=== PATIENT | female | born 1945 | race Caucasian/White ===

== ENCOUNTER → 2017-03-21 | Outpatient (CLI) | payer MEDICARE, OTHER ==
--- NOTE | 2017-03-21 11:39 | RADIOLOGY REPORT PS360 ---
US RUQ-(ABD LTD)1ORGAN/QUAD/FU HISTORY: RUQ PAIN ORDERING PHYSICIAN: Alexandra Granado APRN PATIENT AGE: 71 years COMPARISON: None FINDINGS: PANCREAS: Unremarkable. No obvious mass or abnormal fluid collection. No ductal dilatation LIVER: No focal liver lesions demonstrated. Homogeneous echogenicity. No intrahepatic biliary ductal dilatation evident RIGHT KIDNEY: Unremarkable. Normal size and echogenicity. No hydronephrosis GALLBLADDER: No gallstones, gallbladder wall thickening, pericholecystic fluid, or biliary dilatation. IMPRESSION: Negative gallbladder/right upper quadrant ultrasound
== END ==
LOC: RAD 07:41
DX: R10.11 Right upper quadrant pain (principal); R10.9 Unspecified abdominal pain

== ENCOUNTER → 2017-04-07 | Day surgery (SDC) | payer MEDICARE, OTHER ==
--- NOTE | 2017-04-07 11:05 | Operative Note ---
Upper GI Endoscopy Procedure date: 04/07/17 Date of : 41 Procedure:Upper GI Endoscopy Esophagogastroduodenoscopy with cold biopsies and TTS balloon dilation Indications: Mrs. Anton is a 71-year-old female who is here for diagnostic upper endoscopy. She does have epigastric abdominal pain radiating into the back. She has noted nausea, bloating, early satiety and some belching. She reports some heartburn and reflux but came off of Nexium. She does have some occasional dysphagia and hard swallowing. She reports constipation predominant IBS but some mixed with diarrhea. Her last colonoscopy was with the 13-14 years ago. Performing Provider: Lisbeth Edwards MD Referring Provider: Philly FINN Sedation: Fentanyl 100 mg IV/Versed 5 mg Procedure: Prior to the procedure, a history and physical exam was performed, and patients medications and allergies were reviewed. The risks and benefits of the procedure and the sedation options and risks were discussed with the patient. All questions were answered and informed consent was obtained. The patient was brought to the procedure room. Patient identification and proposed procedure were verified by the physician and the nurse. The patient was placed in a left lateral decubitus position and the scope was passed under direct vision. Throughout the procedure, the patient's blood pressure, pulse, and oxygen saturations were monitored continuously. The endoscope was introduced through the mouth, and advanced to the second part of duodenum. The upper GI endoscopy was accomplished without difficulty. The patient tolerated the procedure well. Findings: The scope was passed directly into the upper esophagus and advanced to the third portion of the duodenum. The post bulbar duodenum and duodenal bulb were normal with normal mucosa and conniventes. The scope was withdrawn through a normal duodenal bulb and pylorus into the stomach. There was bile reflux with linear erythema of the antrum and body of the stomach with evident linear reactive gastritis. The remainder of the antrum, body and fundus of the stomach were grossly normal. Upon retroflexion there was a 2-3 cm hiatal hernia. 2 biopsies were taken in the antrum and along the lesser curvature for histology and/or CLOtest. The scope was then withdrawn into the esophagus. There was no evidence of reflux esophagitis or Aguialr's. There were tertiary contractions and evidence of mild esophageal dysmotility. The entire esophagus was dilated to 60 Upper Sorbian/20 mm with a TTS hydrostatic balloon. There was some resistance at the cricopharyngeus. The remainder of the esophageal mucosa was normal. Immediate complications: None EBL (ml): 0 Impression: 1. 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 Bile reflux with linear reactive gastritis Recommendations: I do feel patient would benefit from dietary measures, fiber bowel regimen, promotility therapy and treatment for visceral sensitivity. I will follow-up the biopsies. The patient does have functional dyspepsia and functional gastroesophageal reflux disease. at 1109
[2017-04-07 13:30] VITALS: BP 122/63
== END ==
LOC: SDC 09:01
PROVIDERS: Internal Medicine Gastroenterology
PROC: 0D758ZZ Dilation of Esophagus, Via Natural or Artificial Opening Endoscopic (ICD-10-PCS; 2017-04-07)
PROC: 0DB78ZX Excision of Stomach, Pylorus, Via Natural or Artificial Opening Endoscopic, Diagnostic (ICD-10-PCS; principal; 2017-04-07 11:30)
DX: K21.9 Gastro-esophageal reflux disease without esophagitis (principal); K44.9 Diaphragmatic hernia without obstruction or gangrene
CPT/HCPCS: C1726

== ENCOUNTER 2017-05-19 11:26 | Day surgery (SDC) | payer MEDICARE, OTHER ==
--- NOTE | 2017-05-19 13:44 | Operative Note ---
Upper GI Endoscopy Procedure date: 05/19/17 Date of : 41 Procedure:Upper GI Endoscopy Esophagogastroduodenoscopy with TTS balloon dilation Indications: Mrs. Anton is a 72-year-old female who was having dyspepsia nausea and bloating. She also had dysphagia and globus sensation with a globus sensation has been persistent. She previously had some cricopharyngeal spasm and this was dilated to 20 mm. She is here for repeat dilation after her prior esophageal dilation on April 07, 2017. Performing Provider: Lisbeth Edwards MD Referring Provider: Philly FINN Sedation: Fentanyl 100 mg IV/Versed 4 mg IV Procedure: Prior to the procedure, a history and physical exam was performed, and patients medications and allergies were reviewed. The risks and benefits of the procedure and the sedation options and risks were discussed with the patient. All questions were answered and informed consent was obtained. The patient was brought to the procedure room. Patient identification and proposed procedure were verified by the physician and the nurse. The patient was placed in a left lateral decubitus position and the scope was passed under direct vision. Throughout the procedure, the patient's blood pressure, pulse, and oxygen saturations were monitored continuously. The endoscope was introduced through the mouth, and advanced to the second part of duodenum. The upper GI endoscopy was accomplished without difficulty. The patient tolerated the procedure well. Findings: The scope was passed directly into the upper esophagus and advanced to the third portion of the duodenum. The post bulbar duodenum and duodenal bulb were normal with normal mucosa and conniventes. The scope was withdrawn through a normal duodenal bulb and pylorus into the stomach. There was mild pylorospasm and mild linear reactive gastritis. The scope was then withdrawn into the esophagus. There was a small hiatal hernia. There was esophageal dysmotility with cricopharyngeal spasm. The cricopharyngeus was again dilated to 20 mm with a TTS hydrostatic balloon. Immediate complications: None EBL (ml): 0 Impression: 1. Cricopharyngeal spasm with nonerosive gastroesophageal reflux disease and small hiatal hernia status post dilation to 20 mm Recommendations: The patient does have globus sensation secondary to functional gastroesophageal reflux disease and cricopharyngeal spasm. We will discuss additional treatment options for her globus sensation. I will proceed with screening colonoscopy. at 1341
--- NOTE | 2017-05-19 14:02 | Operative Note ---
Colonoscopy ([facility]erry) Procedure date: 05/19/17 Date of : 41 Procedure:Colonoscopy Colonoscopy with cold biopsy Indications: Mrs. Anton is a 72-year-old female who is here for follow-up screening/ surveillance colonoscopy. Her last colonoscopy by me 12 or 13 years ago was normal. She has improved with bowel function since initiation of the fiber bowel regimen (MiraLAX plus Metamucil). She has had some ongoing globus sensation. She reports no abdominal pain, weight loss, change in her bowel habits or rectal bleeding. She reports no family history of colon cancer. Performing Provider: Lisbeth Edwards MD Referrring Provider: Philly FINN Sedation: Fentanyl 100 mg IV/Versed 7 mg IV Procedure: Prior to the procedure, a history and physical exam was performed, and patient medications and allergies were reviewed. The risks and benefits of the procedure and the sedation options and risks were discussed with the patient. All questions were answered and informed consent was obtained. Patient identification and proposed procedure were verified by the physician and the nurse. The patient was placed in a left lateral decubitus position. Throughout the procedure, the patient's blood pressure, pulse, and oxygen saturations were monitored continuously. Findings: On digital rectal examination there was normal rectal tone. There were no external hemorrhoids. The colonoscope was introduced through the anal canal to the rectum and advanced to the cecum. The ileocecal valve and appendiceal orifice were identified. The scope was advanced a short distance into the ileum which appeared grossly normal. The scope was then withdrawn into the colon. There was a single diminutive polyp in the ascending colon that was 3 mm and removed via cold biopsy. The remaining cecum, ascending and transverse colon and mucosa were grossly normal. There were very mildly shallow scattered diverticuli throughout the descending and sigmoid colon (LEFT colon). The rectum itself was normal. Upon retroflexion within the rectum there were grade 1 internal hemorrhoids. Impressions: 1. Diminutive ascending polyp 2. Very mild left-sided diverticulosis 3. Grade 1 internal hemorrhoids Recommendations: I am not convinced that she will require any further screening/surveillance colonoscopy. I will follow up the polyp histology. I would continue the fiber bowel regimen on a long-term daily maintenance basis. Complications: None EBL (ml): 0 at 1402
[2017-05-19 15:41] VITALS: BP 131/71
== END 2017-05-19 15:25 | disposition home or self-care (01) ==
LOC: SDC 11:26
PROVIDERS: Internal Medicine Gastroenterology
PROC: 0D758ZZ Dilation of Esophagus, Via Natural or Artificial Opening Endoscopic (ICD-10-PCS; 2017-05-19)
PROC: 0DBK8ZX Excision of Ascending Colon, Via Natural or Artificial Opening Endoscopic, Diagnostic (ICD-10-PCS; principal; 2017-05-19 12:30)
DX: Z12.11 Encounter for screening for malignant neoplasm of colon (principal); D12.2 Benign neoplasm of ascending colon; K57.30 Diverticulosis of large intestine without perforation or abscess without bleeding; K64.0 First degree hemorrhoids; R10.13 Epigastric pain; K21.9 Gastro-esophageal reflux disease without esophagitis; K44.9 Diaphragmatic hernia without obstruction or gangrene; K22.4 Dyskinesia of esophagus
CPT/HCPCS: C1726